=== PATIENT | female | born 1995 | race Hispanic/Latino ===

== ENCOUNTER 2017-07-09 12:06 | Emergency (ER) | payer SELFPAY ==
[~2017-07-09] VITALS: Ht 157.5 cm; Wt 58.1 kg
[2017-07-09] MEDS ORDERED: PANTOPRAZOLE 40 MG 10ML VIAL IV STA (12:29)
[2017-07-09] MEDS ORDERED: ONDANSETRON HCL 4 MG ORAL DISINTEGRATING TAB PO ONE (12:30)
[2017-07-09] MEDS ORDERED: DONNATAL/LIDOCAINE/MAALOX 30 ML SUSP PO ONE (12:30)
[2017-07-09 14:03] VITALS: BP 152/77
[2017-07-09] MEDS ORDERED: KETOROLAC TROMETHAMINE 30 MG/ML VIAL IV STA (14:34)
[2017-07-09] MEDS ORDERED: TYLENOL WITH C1 EACH PO (15:12)
[2017-07-09] MEDS ORDERED: IBUPROFEN400 MG PO (15:13)
== END 2017-07-09 15:28 | disposition home or self-care (01) ==
LOC: FSED 12:06
DX: R10.13 Epigastric pain (principal); R11.0 Nausea; K80.70 Calculus of gallbladder and bile duct without cholecystitis without obstruction
CPT/HCPCS: 80053; 81003; 81025; 85025; 99282; J1885